=== PATIENT | female | born 1960 ===

== ENCOUNTER 2025-05-18 09:50 | Outpatient (CLI) | payer OTHER | END 2025-05-18 09:56 | disposition home or self-care (01) | LOC: RAD 09:50 | DX: M54.16 Radiculopathy, lumbar region (principal); M15.9 Polyosteoarthritis, unspecified ==

== ENCOUNTER 2025-05-22 10:00 | Inpatient (IN) | payer OTHER ==
[~2025-05-22] VITALS: Ht 61 cm; Wt 66.7 kg
[2025-05-22 11:32] VITALS: BP 150/79
[2025-05-22] MEDS ORDERED: AMBIEN CR12.5 MG PO (11:36)
[2025-05-22] MEDS ORDERED: EZALLOR SPRINKL20 MG PO (11:37)
[2025-05-22] MEDS ORDERED: TRAZODONE HCL150 MG PO (11:37)
[2025-05-22] MEDS ORDERED: NEURONTIN800 MG PO (11:37)
[2025-05-22] MEDS ORDERED: SYNTHROID50 MCG PO (11:38)
[2025-05-22] MEDS ORDERED: CATAFLAN (11:38)
[2025-05-22] MEDS ORDERED: METFORMIN HCL500 M3 PO (11:39)
[2025-05-22] MEDS ORDERED: CLONAZEPAM2 MG PO (11:40)
[2025-05-22 13:47] LABS: COVID-19 AG NEGATIVE (NEGATIVE)
[2025-05-30] MEDS ORDERED: PROMETHAZINE HCL 50 MG/ML AMPUL IM PRN (07:45)
[2025-05-30] MEDS ORDERED: ENALAPRILAT DIHYDRATE 1.25 MG/ML VIAL IV PRN (07:45)
[2025-05-30] MEDS ORDERED: 0.9 % SODIUM CHLORIDE 1,000 ML IV SCH (07:45)
[2025-05-30] MEDS ORDERED: METHYLPREDNISOLONE SOD SUCC 125 MG VIAL IV SCH (09:00)
[2025-05-30] MEDS ORDERED: MetFORMIN HCL 500 MG TABLET PO SCH (09:00)
[2025-05-30] MEDS ORDERED: VANCOMYCIN HCL 1,000 MG VIAL IV SCH (09:00)
[2025-05-30] MEDS ORDERED: MORPHINE SULFATE 4 MG/ML CARTRIDGE IV SCH (09:00)
[2025-05-30] MEDS ORDERED: CEFAZOLIN SODIUM 1,000 MG in 0.9 % SODIUM CHLORIDE 50 ML IV SCH (09:00)
[2025-05-30] MEDS ORDERED: DOCUSATE SODIUM 100MG CAP PO SCH (09:00)
[2025-05-30] MEDS ORDERED: VANCOMYCIN HCL 1,000 MG VIAL IV ONE (15:15)
[2025-05-30] MEDS ORDERED: IOVERSOL 320 MG/ML - 50 ML VIAL IV ONE (15:30)
[2025-05-30] MEDS ORDERED: VANCOMYCIN HCL 1,000 MG VIAL SPEPROC ONE (15:30)
[2025-05-30] MEDS ORDERED: CEFAZOLIN SODIUM 1,000 MG VIAL IV ONE (15:30)
[2025-05-30] MEDS ORDERED: METHYLPREDNISOLONE ACETATE 80 MG/ML VIAL IU ONE (15:30)
[2025-05-30] MEDS ORDERED: PERCOCET 5-3251 EACH PO (15:45)
[2025-05-30] MEDS ORDERED: METHYLPREDNISOLONE SOD SUCC 125 MG VIAL IV ONE ×2 (15:45)
[2025-05-30] MEDS ORDERED: COLACE100 MG PO (15:46)
[2025-05-30] MEDS ORDERED: AMOX-CLAV 875-1 EACH PO (15:46)
[2025-05-30] MEDS ORDERED: ZOFRAN8 MG PO (15:46)
[2025-05-30] MEDS ORDERED: MEDROLPACK PO (15:46)
[2025-05-30] MEDS ORDERED: GABAPENTIN100 M2 PO (15:47)
[2025-05-30] MEDS ORDERED: NEURONTIN800 MG PO (15:47)
[2025-05-30] MEDS ORDERED: MORPHINE SULFATE 4 MG/ML VIAL IV ONE ×2 (16:30→17:15)
[2025-05-30] MEDS ORDERED: TAMSULOSIN HCL 0.4 MG CAP PO SCH (17:00)
[2025-05-30 19:19] VITALS: BP 150/79; O2SAT 99
[2025-05-30] MEDS ORDERED: ACETAMINOPHEN 500 MG GEL..CAP PO SCH (20:00)
[2025-05-30] MEDS ORDERED: INSULIN LISPRO 1,000 UNIT/10 ML UNITS SUBCUTANEO PRN (20:00)
[2025-05-30] MEDS ORDERED: GABAPENTIN 800 MG TABLET PO SCH (21:00)
[2025-05-30] MEDS ORDERED: TRAZODONE HCL 50 MG TABLET PO SCH (21:00)
[2025-05-31] VITALS: BP 136/75; O2SAT 100
[2025-05-31] MEDS ORDERED: SODIUM CHLORIDE 0.45 % 1,000 ML IV SCH
[2025-05-31 04:00] VITALS: BP 131/70; O2SAT 99
[2025-05-31] MEDS ORDERED: LEVOTHYROXINE SODIUM 50 MCG TABLET PO SCH (06:00)
[2025-05-31] MEDS ORDERED: OxyCODONE HCL 5 MG TABLET (ROXICODONE) PO SCH (06:01)
[2025-05-31 06:50] LABS: BASO % 0.1 % (0.1-1.2); EOS # 0.00 (0.04-0.54); EOS % 0.0 % (0.7-7.0); LYMPH # 0.59 (1.18-3.74); LYMPH % 4.2 % (19.3-53.1); MEAN PLATELET VOLUME 11.20 fl (9.4-12.4); MONO # 0.19 (0.24-0.82); MONO % 1.4 % (4.7-12.5); NEUT # 13.04 (1.56-6.13); NEUT % 93.6 % (34.0-71.1); RED CELL DISTRIBUTION WIDTH 13.1 % (11.6-14.4)
[2025-05-31 07:04] LABS: BUN CREA RATIO 20.0 (7.0-25.0); CREATININE SERUM 0.54 mg/dL (0.55-1.02); GFR 114.02; GLUCOSE FASTING 179.0 mg/dL (65-100); OSMOLALITY SERUM 287.0 MOSM/KG (275-295)
[2025-05-31 07:30] VITALS: BP 129/66; O2SAT 99
[2025-05-31 12:30] VITALS: BP 130/77; O2SAT 99
[2025-05-31 16:00] VITALS: BP 132/78; O2SAT 99
[2025-05-31 20:00] VITALS: BP 120/66; O2SAT 98
[2025-06-01] VITALS: BP 131/66; O2SAT 96
[2025-06-01 04:00] VITALS: BP 126/65; O2SAT 98
[2025-06-01] MEDS ORDERED: CEFAZOLIN SODIUM 1,000 MG VIAL ONE (08:05)
[2025-06-01 08:07] VITALS: BP 138/72; O2SAT 98
== END 2025-06-01 09:45 | disposition home or self-care (01) | DRG 402 ==
LOC: EDUNIT# 10:00 → PED 05-30 10:00 → O/R 05-30 10:00 → SURG 05-30 10:00 → PED 05-30 17:20
PROVIDERS: ADMIT Orthopaedic Surgery Orthopaedic Surgery of the Spine; ATTEND Orthopaedic Surgery Orthopaedic Surgery of the Spine
PROC: 0SG30K1 Fusion of Lumbosacral Joint with Nonautologous Tissue Substitute, Posterior Approach, Posterior Column, Open Approach (ICD-10-PCS; 2025-05-30)
PROC: 0ST40ZZ Resection of Lumbosacral Disc, Open Approach (ICD-10-PCS; 2025-05-30)
PROC: 0SP004Z Removal of Internal Fixation Device from Lumbar Vertebral Joint, Open Approach (ICD-10-PCS; 2025-05-30)
PROC: 07DR0ZZ Extraction of Iliac Bone Marrow, Open Approach (ICD-10-PCS; 2025-05-30)
PROC: 0SG30A0 Fusion of Lumbosacral Joint with Interbody Fusion Device, Anterior Approach, Anterior Column, Open Approach (ICD-10-PCS; principal; 2025-05-30 14:30)
DX: M48.07 Spinal stenosis, lumbosacral region (principal); M43.17 Spondylolisthesis, lumbosacral region; M51.371 Other intervertebral disc degeneration, lumbosacral region with lower extremity pain only; Z98.1 Arthrodesis status; E11.9 Type 2 diabetes mellitus without complications; E03.9 Hypothyroidism, unspecified; I10 Essential (primary) hypertension